=== PATIENT | female | born 1965 | race Caucasian/White ===

== ENCOUNTER 2016-12-15 13:47 | Emergency (ER) | payer OTHER ==
[2016-12-15 14:26] LABS: BASO % 0.5 % (0.1-1.2); EOS # 0.1 10_X3_uL (0.0-0.4); EOS % 1.2 % (0.7-5.8); GRAN # 4.5 10_X3_uL (1.6-6.1); GRAN % 68.8 % (34.0-71.1); HEMATOCRIT 39.7 % (34-45); HEMOGLOBIN 13.3 g/dL (11.2-15.7); LYMPH # 1.6 10_X3_uL (1.2-3.7); LYMPH % 23.9 % (19.3-51.7); MEAN CORPUSCULAR HGB CONC 33.5 g/dL (32.0-36.0); MEAN CORPUSCULAR VOLUME 83.6 fL (79-95); MONO # 0.4 10_X3_uL (0.2-0.9); MONO % 5.6 % (4.7-12.5); PLATELET COUNT 182 x10_3/uL (182-369); RED BLOOD COUNT 4.75 x10_6/uL (3.9-5.2); WHITE BLOOD COUNT 6.5 x10_3/uL (4.0-10.0)
[2016-12-15 14:44] LABS: ALBUMIN 4.2 gm/dL (3.4-5.0); ALKALINE PHOSPHATASE 80 U/L (50-136); ALT/SGPT 22 U/L (3.5-33.9); AST/SGOT 29 U/L (7.04-26.96); BILIRUBIN,TOTAL 0.31 mg/dL (0.0-1.0); BLOOD UREA NITROGEN 10 mg/dL (7-18); CALCIUM 8.9 mg/dL (8.7-10.7); CARBON DIOXIDE 24 mmol/L (21-32); CREATININE 0.5 mg/dL (0.6-1.3); GLUCOSE,RANDOM 174 mg/dL (70-99); POTASSIUM 4.1 mmol/L (3.5-5.1); SODIUM 137 mmol/L (136-145); TOTAL PROTEIN 7.6 gm/dL (6.4-8.2)
== END 2016-12-15 17:06 | disposition home or self-care (01) ==
LOC: ER 13:47
PROVIDERS: General Practice
DX: R07.89 Other chest pain (principal); R74.8 Abnormal levels of other serum enzymes; J84.9 Interstitial pulmonary disease, unspecified; F41.9 Anxiety disorder, unspecified; F31.9 Bipolar disorder, unspecified; E11.9 Type 2 diabetes mellitus without complications; I10 Essential (primary) hypertension; G89.29 Other chronic pain; M54.2 Cervicalgia; F43.10 Post-traumatic stress disorder, unspecified; E07.9 Disorder of thyroid, unspecified; Z79.899 Other long term (current) drug therapy; Z79.84 Long term (current) use of oral hypoglycemic drugs
CPT/HCPCS: 36415; 71010; 80053; 81025; 85025; 85379; 93005; 99070; 99285-25